=== PATIENT | male | born 1935 | race Caucasian/White ===

== ENCOUNTER 2016-06-22 11:27 | Inpatient (IN) | payer OTHER ==
[~2016-06-22] VITALS: Ht 182.9 cm; Wt 124.0 kg
[2016-06-22] VITALS (10 sets, daily range): BP systolic 112–171; BP diastolic 67–105
[~2016-06-22 11:27] MED LIST: ADVAIR 100-501 EACH IH; ADVAIR 250/501 DISK IH; ADVAIR 500/501 DISK IH; ALBUTEROL17 GM IH; AMLODIPINE BESYL5 MG PO; ASPIR 8181 M1 PO; ASPIR 8181 MG PO; ASPIRIN81 M1 PO; ATROVENT 0.03%30 ML BOTH NARES; ATROVENT 00.5 MG/2.5 IH; CALCIUM + D 601 EACH PO; CALCIUM 600 +1 EAC2 PO; CALCIUM 600 +1 EAC9 PO; CALCIUM 600 MG1 EACH PO; CALCIUM600 MG PO; CATAPRES0.1 MG PO; CELEBREX200 MG PO; CELEBREX400 MG PO; CELECOXIB200 MG PO; CIPRO500 MG PO; CLONIDINE HCL0.1 MG PO; COUMADIN1 MG PO; COUMADIN3 MG PO; CYANOCOBAL1000 MCG/2 IM; CYANOCOBALAM1000 MCG PO; DAILY VITE1 EAC1 PO; DIOVAN HCT 81 TABLET PO; DIOVAN80 MG PO; DUONEB 2.5-0.5 M3 ML AEROSOL; DUONEB3 ML IH; DURAGESIC25 MCG TD; DURAGESIC50 MCG PO; DURAGESIC75 MCG TD; Duragesic TD; EFFEXOR XR150 MG PO; ENDOCET 5-3251 EACH PO; Ecotrin PO; FERROUS SULFAT325 MG PO; FLONASE16 G1 BOTH NARES; FLOVENT 11120 INHALA IH; FLOVENT DISKUS1 DISK IH; FLUOXETINE HCL40 MG PO; GABAPENTIN600 MG PO; GLUCOSAMINE &1 EACH PO; GLUCOSAMINE CH1 EAC1 PO; HYZAAR 100-21 TABLET PO; IPRATROPIUM BRO30 ML BOTH NARES; IRON PO; IRON325 M1 PO; LIDOCAINE700 MG TD; LISINOPRIL5 MG PO; LOPRESSOR50 MG PO; LOSARTAN-HCTZ1 EAC1 PO; LOVENOX40 MG/0.4 SC; Lopressor PO; METOPROLOL TART50 MG PO; MONTELUKAST SOD10 MG PO; MOTRIN400 MG PO; MULTIPLE VITAM1 EAC1 PO; NASONEX17 GM NS; NEURONTIN300 MG PO; NEURONTIN600 MG PO; NIACIN1000 MG PO; NIACIN750 MG PO; NIASPAN,SLO-N1000 MG PO; NIASPAN750 MG PO; NORVASC5 MG PO; ONE DAILY1 EAC3 PO; PERCOCET 5/31 TABLET PO; PRINIVIL5 MG PO; PROTONIX40 MG PO; PROZAC40 MG PO; SENNA PLUS TAB1 EACH PO; SENOKOT S,PE1 TABLET PO; SIMVASTATIN40 MG PO; SINGULAIR10 MG PO; SPECTRAVITE1 EAC1 PO; Singulair PO; VENTOLIN HFA18 GM IH; VITAMIN D-32000 UNI2 PO; VITAMIN D1000 INTUN PO; VITAMIN D1000 UNIT PO; VITAMIN D2000 UNIT PO; VITAMIN D31000 UNI1 PO; VITAMIN D31000 UNI2 PO; VITAMIN D400 UNI1 PO; VYTORIN 10-401 EACH PO; VYTORIN 10/41 TABLET PO; WARFARIN SODIU7.5 MG PO; ZADITOR 0.100 DROP/5 BOTH EYES; ZOCOR40 MG PO
[2016-06-22 12:04] LABS: HEMATOCRIT 44.7 % (38.0-50.0); MCH 32.6 PG (29.0-34.0); MCHC 34.9 G/DL (30.0-36.0); MCV 93.3 FL (86-99); MEAN PLAT.VOLUME 9.8 uM^3 (9.0-12.4); PLATELET COUNT 242 K/uL (156-360); RBC DIS.WIDTH-SD 42.9 % (39-53); RED BLOOD COUNT 4.79 M/uL (4.00-5.50); WHITE BLOOD COUNT 9.6 K/uL (4.1-10.2)
[2016-06-22 12:15] LABS: CHLORIDE 103 mEq/L (99-109); POTASSIUM 4.6 mEq/L (3.7-5.4); SODIUM 138 mEq/L (136-147)
[2016-06-22 12:16] LABS: GLUCOSE 119 mg/dL (70-99)
[2016-06-22 12:18] LABS: ANION GAP 11 MEQ/L (2-14)
[2016-06-22 12:20] LABS: GFR ESTIMATE (CALCULATED) 44 mL/min/
[2016-06-22 12:21] LABS: UREA NITROGEN (BUN) 19 mg/dL (9-23)
[2016-06-22 12:24] LABS: TROP-I INTERPRETATION INDETERMINATE; TROPONIN-I 0.42 ng/mL (0.0-0.30)
[2016-06-22 17:29] LABS: POINT-OF-CARE METER ID UU13113698
[2016-06-22 18:20] LABS: TROP-I INTERPRETATION INDETERMINATE; TROPONIN-I 0.42 ng/mL (0.0-0.30)
[2016-06-22] MEDS ORDERED: IMODIUM A-D2 M2 PO (18:26)
[2016-06-22 20:35] LABS: INFLUENZA A VIRAL ANTIGEN NEGATIVE; INFLUENZA B VIRAL ANTIGEN NEGATIVE
[2016-06-23 01:14] LABS: TROP-I INTERPRETATION INDETERMINATE; TROPONIN-I 0.31 ng/mL (0.0-0.30)
[2016-06-23 03:42] VITALS: BP 154/92
[2016-06-23 05:57] LABS: ANION GAP 11 MEQ/L (2-14); CHLORIDE 101 MEQ/L (99-109); GFR ESTIMATE (CALCULATED) 39 mL/min/; GLUCOSE 131 mg/dL (70-99); SAMPLE HEMOLYSIS CHECK 0; SAMPLE ICTERIC CHECK 0; SAMPLE LIPEMIA CHECK 0; SODIUM 135 MEQ/L (136-147)
[2016-06-23 06:39] LABS: UREA NITROGEN (BUN) 33 mg/dL (9-23)
[2016-06-23 06:45] LABS: HEMATOCRIT 40.7 % (38.0-50.0); MCH 32.6 PG (29.0-34.0); MCHC 34.2 G/DL (30.0-36.0); MCV 95.3 FL (86-99); MEAN PLAT.VOLUME 10.9 uM^3 (9.0-12.4); PLATELET COUNT 225 K/uL (156-360); RBC DIS.WIDTH-SD 44.6 % (39-53); RED BLOOD COUNT 4.27 M/uL (4.00-5.50)
[2016-06-23 06:47] LABS: WHITE BLOOD COUNT 12.7 K/uL (4.1-10.2)
[2016-06-23 08:10] VITALS: BP 160/95
[2016-06-23 11:20] VITALS: BP 141/77
[2016-06-23 12:01] LABS: POINT-OF-CARE METER ID UU14174216
[2016-06-23 16:55] VITALS: BP 141/85
[2016-06-23 17:36] LABS: POINT-OF-CARE METER ID UU14174216
[2016-06-23 19:37] VITALS: BP 144/94
[2016-06-24 00:45] VITALS: BP 146/71
[2016-06-24 07:11] LABS: ANION GAP 10 MEQ/L (2-14); CHLORIDE 101 MEQ/L (99-109); GFR ESTIMATE (CALCULATED) 31 mL/min/; GLUCOSE 122 mg/dL (70-99); POTASSIUM 4.6 MEQ/L (3.7-5.4); SAMPLE HEMOLYSIS CHECK 0; SAMPLE ICTERIC CHECK 0; SAMPLE LIPEMIA CHECK 0; SODIUM 133 MEQ/L (136-147)
[2016-06-24 07:12] LABS: HEMATOCRIT 39.1 % (38.0-50.0); MCH 33.1 PG (29.0-34.0); MCV 94.4 FL (86-99); MEAN PLAT.VOLUME 10.9 uM^3 (9.0-12.4); PLATELET COUNT 217 K/uL (156-360); RBC DIS.WIDTH-CV 12.8 % (11.8-14.6); RBC DIS.WIDTH-SD 44.2 % (39-53); RED BLOOD COUNT 4.14 M/uL (4.00-5.50); UREA NITROGEN (BUN) 54 mg/dL (9-23)
[2016-06-24 07:56] LABS: POINT-OF-CARE METER ID UU13113781
[2016-06-24 08:03] VITALS: BP 140/74
[2016-06-24 15:20] VITALS: BP 143/82
[2016-06-24 19:18] VITALS: BP 137/77
[2016-06-24 23:20] LABS: ADD MIUA? NO; BILIRUBIN NEGATIVE; BLOOD NEGATIVE; COLOR YELLOW ((YELLOW)); GLUCOSE (STRIP) NEGATIVE; KETONES NEGATIVE; LEUKOCYTES NEGATIVE; NITRITE NEGATIVE; PROTEIN (STRIP) NEGATIVE; SPECIFIC GRAVITY 1.021 (1.000-1.030); UROBILINOGEN 0.2 MG/DL (0.2-1.0)
[2016-06-25 00:22] VITALS: BP 138/85
[2016-06-25 05:27] VITALS: BP 146/91
[2016-06-25 07:01] LABS: HEMATOCRIT 36.3 % (38.0-50.0); MCH 32.4 PG (29.0-34.0); MCHC 34.4 G/DL (30.0-36.0); PLATELET COUNT 166 K/uL (156-360); RBC DIS.WIDTH-CV 12.8 % (11.8-14.6); RBC DIS.WIDTH-SD 43.5 % (39-53); RED BLOOD COUNT 3.86 M/uL (4.00-5.50)
[2016-06-25 07:02] LABS: WHITE BLOOD COUNT 11.6 K/uL (4.1-10.2)
[2016-06-25 07:12] LABS: ANION GAP 8 MEQ/L (2-14); CHLORIDE 102 MEQ/L (99-109); GFR ESTIMATE (CALCULATED) 34 mL/min/; GLUCOSE 120 mg/dL (70-99); POTASSIUM 4.5 MEQ/L (3.7-5.4); SAMPLE HEMOLYSIS CHECK 0; SAMPLE ICTERIC CHECK 0; SAMPLE LIPEMIA CHECK 0; SODIUM 132 MEQ/L (136-147); UREA NITROGEN (BUN) 52 mg/dL (9-23)
[2016-06-25 08:15] VITALS: BP 160/93
[2016-06-25 11:30] VITALS: BP 140/86
[2016-06-25 13:24] LABS: ANION GAP 5 MEQ/L (2-14); CHLORIDE 101 MEQ/L (99-109); GFR ESTIMATE (CALCULATED) 39 mL/min/; GLUCOSE 93 mg/dL (70-99); SAMPLE HEMOLYSIS CHECK 1; SAMPLE ICTERIC CHECK 0; SAMPLE LIPEMIA CHECK 0; SODIUM 133 MEQ/L (136-147); UREA NITROGEN (BUN) 50 mg/dL (9-23)
[2016-06-25 13:27] LABS: POTASSIUM 4.2 MEQ/L (3.7-5.4)
[2016-06-25] MEDS ORDERED: ASPIR-LOW81 MG PO (13:46)
[2016-06-25] MEDS ORDERED: LEVOFLOXACIN750 MG PO (13:50)
[2016-06-25] MEDS ORDERED: AMLODIPINE BES2.5 MG PO (13:50)
[2016-06-25] MEDS ORDERED: LOPRESSOR25 MG PO (13:50)
[2016-06-25] MEDS ORDERED: PREDNISONE20 MG PO (13:50)
[2016-06-25] MEDS ORDERED: ATORVASTATIN CA40 MG PO (13:50)
[2016-06-25] MEDS ORDERED: VENTOLIN HFA18 GM IH (14:44)
== END 2016-06-25 15:15 | disposition home health service (06) | DRG 281 ==
LOC: EME → EDBD 11:27 → 4EAST 14:04 → EDOF 14:04 → 4EAST 15:05
PROVIDERS: Emergency Medicine; Hospitalist; Internal Medicine; Physician Assistant
PROC: 5A1935Z Respiratory Ventilation, Less than 24 Consecutive Hours (ICD-10-PCS; principal; 2016-06-22)
DX: I21.4 Non-ST elevation (NSTEMI) myocardial infarction (principal); J44.1 Chronic obstructive pulmonary disease with (acute) exacerbation; F33.9 Major depressive disorder, recurrent, unspecified; I48.2 Chronic atrial fibrillation; N18.3 Chronic kidney disease, stage 3 (moderate); G47.33 Obstructive sleep apnea (adult) (pediatric); I50.9 Heart failure, unspecified; J20.9 Acute bronchitis, unspecified; I25.10 Atherosclerotic heart disease of native coronary artery without angina pectoris; I45.10 Unspecified right bundle-branch block; I12.9 Hypertensive chronic kidney disease with stage 1 through stage 4 chronic kidney disease, or unspecified chronic kidney disease; E78.5 Hyperlipidemia, unspecified; F41.9 Anxiety disorder, unspecified; F03.90 Unspecified dementia, unspecified severity, without behavioral disturbance, psychotic disturbance, mood disturbance, and anxiety; K21.9 Gastro-esophageal reflux disease without esophagitis; J45.909 Unspecified asthma, uncomplicated; E66.9 Obesity, unspecified; Z68.37 Body mass index [BMI] 37.0-37.9, adult; Z87.891 Personal history of nicotine dependence; Z88.0 Allergy status to penicillin; Z99.89 Dependence on other enabling machines and devices
CPT/HCPCS: 71010; 80048; 80048 91; 81003; 82948; 84484; 85027; 85730; 87502; 93005; 93306; 94002; 94640; 94640 76; 94760; 94799; 99202; 99281; 99285; J1100; J1815; J2920; J7120; J7512; J7644

== ENCOUNTER 2016-10-14 14:54 | Emergency (ER) | payer OTHER ==
[~2016-10-14] VITALS: Ht 182.9 cm; Wt 122.1 kg
[~2016-10-14 14:54] MED LIST changes: +AMLODIPINE BES2.5 MG PO; +ASPIR-LOW81 MG PO; +ATORVASTATIN CA40 MG PO; +IMODIUM A-D2 M2 PO; +LEVOFLOXACIN750 MG PO; +LOPRESSOR25 MG PO; +PREDNISONE20 MG PO
[2016-10-14 16:45] LABS: BASOPHIL COUNT 0.1 K/uL (0-0.1); EOSINOPHIL (%) 12.5 % (0-5); EOSINOPHIL COUNT 1.1 K/uL (0-0.3); HEMATOCRIT 37.8 % (38.0-50.0); IMMATURE GRANULOCYTE (%) 1.7 % (0.0-0.7); IMMATURE GRANULOCYTE COUNT 0.2 K/uL; INSTRUMENT ABS NEUTROPHIL CT 5.8 K/uL; LYMPHOCYTE COUNT 1.2 K/uL (1.0-2.8); MCH 32.7 PG (29.0-34.0); MCHC 32.5 G/DL (30.0-36.0); MCV 100.5 FL (86-99); MEAN PLAT.VOLUME 10.5 uM^3 (9.0-12.4); MONOCYTE (%) 8.1 % (3-12); MONOCYTE COUNT 0.7 K/uL (0-0.8); NEUTROPHIL (%) 64.1 % (45-76); NEUTROPHIL COUNT 5.8 K/uL (1.8-6.4); PLATELET COUNT 195 K/uL (156-360); RBC DIS.WIDTH-CV 13.2 % (11.8-14.6); RBC DIS.WIDTH-SD 48.4 % (39-53); RED BLOOD COUNT 3.76 M/uL (4.00-5.50); WHITE BLOOD COUNT 9.1 K/uL (4.1-10.2)
[2016-10-14 16:54] LABS: CHLORIDE 111 mEq/L (99-109); POTASSIUM 4.6 mEq/L (3.7-5.4); SODIUM 142 mEq/L (136-147)
[2016-10-14 16:55] LABS: GLUCOSE 119 mg/dL (70-99)
[2016-10-14 16:57] LABS: ANION GAP 9 MEQ/L (2-14)
[2016-10-14 16:59] LABS: GFR ESTIMATE (CALCULATED) 44 mL/min/
[2016-10-14 17:00] LABS: UREA NITROGEN (BUN) 23 mg/dL (9-23)
[2016-10-14 18:04] LABS: TROP-I INTERPRETATION NEGATIVE; TROPONIN-I < 0.01 ng/mL (0.0-0.30)
[2016-10-14] MEDS ORDERED: PREDNISONE10 MG PO (19:24)
[2016-10-14] MEDS ORDERED: PREDNISONE50 MG PO (19:29)
[2016-10-14 19:58] VITALS: BP 162/93
== END 2016-10-14 20:30 | disposition home or self-care (01) ==
LOC: EME 14:54
PROVIDERS: Emergency Medicine; Physician Assistant
DX: J44.1 Chronic obstructive pulmonary disease with (acute) exacerbation (principal); I10 Essential (primary) hypertension; E78.5 Hyperlipidemia, unspecified; I25.2 Old myocardial infarction; Z87.891 Personal history of nicotine dependence
CPT/HCPCS: 71020; 80048; 84484; 85025; 93005; 94640; 94640 76; 99281; 99284; J1100

== ENCOUNTER 2017-05-01 10:08 | Inpatient (IN) | payer OTHER ==
[~2017-05-01] VITALS: Ht 182.9 cm; Wt 118.2 kg
[~2017-05-01 10:08] MED LIST changes: +DELTASONE20 M1 PO; +LEVAQUIN500 MG PO; +PREDNISONE10 MG PO; +PREDNISONE50 MG PO
[2017-05-01 11:20] LABS: HEMATOCRIT 42.4 % (38.0-50.0); HEMOGLOBIN 14.1 G/DL (12.5-16.6); MCH 32.6 PG (29.0-34.0); MCHC 33.3 G/DL (30.0-36.0); MCV 98.1 FL (86-99); PLATELET COUNT 170 K/uL (156-360); RBC DIS.WIDTH-CV 13.3 % (11.8-14.6); RBC DIS.WIDTH-SD 48.6 % (39-53); RED BLOOD COUNT 4.32 M/uL (4.00-5.50); WHITE BLOOD COUNT 7.8 K/uL (4.1-10.2)
[2017-05-01 11:30] LABS: ALBUMIN 3.6 g/dL (3.2-4.8); CHLORIDE 108 mEq/L (99-109); POTASSIUM 4.6 mEq/L (3.7-5.4); SODIUM 142 mEq/L (136-147)
[2017-05-01 11:32] LABS: GLUCOSE 110 mg/dL (70-99); TOTAL PROTEIN 6.4 g/dL (6.4-8.3)
[2017-05-01 11:34] LABS: TOTAL BILIRUBIN 1.3 mg/dL (0.0-1.0)
[2017-05-01 11:36] LABS: ALKALINE PHOSPHATASE 60 IU/L (3-129); CREATININE 1.6 mg/dL (0.6-1.3); GFR ESTIMATE (CALCULATED) 44 mL/min/ (58.99-99999)
[2017-05-01 11:37] LABS: UREA NITROGEN (BUN) 16 mg/dL (9-23)
[2017-05-01 11:38] LABS: AST (GOT) 19 IU/L (2-34)
[2017-05-01 11:39] LABS: ALT (GPT) 13 IU/L (3-49)
[2017-05-01 11:44] LABS: TROP-I INTERPRETATION NEGATIVE; TROPONIN-I 0.01 ng/mL (0.0-0.30)
[2017-05-01] MEDS ORDERED: LOPRESSOR50 MG PO (14:56)
[2017-05-01] MEDS ORDERED: LIPITOR40 MG PO (14:56)
[2017-05-01] MEDS ORDERED: ADULT ASPIRIN R81 MG PO (14:57)
[2017-05-01] MEDS ORDERED: ALBUTEROL1.25 MG/3 IH (14:59)
[2017-05-01 19:10] LABS: TROP-I INTERPRETATION NEGATIVE; TROPONIN-I < 0.01 ng/mL (0.0-0.30)
[2017-05-01 20:48] VITALS: BP 197/103
[2017-05-01 22:29] VITALS: BP 180/100
[2017-05-02] VITALS (7 sets, daily range): BP systolic 129–190; BP diastolic 74–95
[2017-05-02 02:49] LABS: TROP-I INTERPRETATION NEGATIVE; TROPONIN-I < 0.01 ng/mL (0.0-0.30)
[2017-05-02 06:05] LABS: CHLORIDE 106 MEQ/L (99-109); CREATININE 1.5 MG/DL (0.6-1.3); GFR ESTIMATE (CALCULATED) 48 mL/min/ (58.99-99999); GLUCOSE 118 mg/dL (70-99); POTASSIUM 4.4 MEQ/L (3.7-5.4); SODIUM 138 MEQ/L (136-147); UREA NITROGEN (BUN) 18 mg/dL (9-23)
[2017-05-03 03:56] VITALS: BP 136/79
[2017-05-03 08:51] VITALS: BP 168/95
[2017-05-03 12:54] VITALS: BP 162/88
[2017-05-03 17:27] VITALS: BP 155/80
[2017-05-03 20:00] VITALS: BP 154/77
[2017-05-04 00:26] VITALS: BP 148/69
[2017-05-04 07:43] VITALS: BP 186/88
[2017-05-04] MEDS ORDERED: LEVOFLOXACIN500 MG PO (10:50)
[2017-05-04] MEDS ORDERED: PREDNISONE10 MG PO (10:54)
[2017-05-04 11:09] VITALS: BP 124/66
== END 2017-05-04 13:37 | disposition home health service (06) | DRG 191 ==
LOC: EME 10:08 → EDOF 14:34 → 5WEST 14:34 → EDOF 14:34 → ENRESERV 14:38 → 5WEST 20:12 → ENPENDDIS 05-04 11:07 → 5WEST 05-04 13:37
PROVIDERS: Emergency Medicine; Internal Medicine
DX: J44.1 Chronic obstructive pulmonary disease with (acute) exacerbation (principal); N17.9 Acute kidney failure, unspecified; I13.0 Hypertensive heart and chronic kidney disease with heart failure and stage 1 through stage 4 chronic kidney disease, or unspecified chronic kidney disease; N18.3 Chronic kidney disease, stage 3 (moderate); R09.02 Hypoxemia; I50.9 Heart failure, unspecified; E78.5 Hyperlipidemia, unspecified; I48.91 Unspecified atrial fibrillation; F03.90 Unspecified dementia, unspecified severity, without behavioral disturbance, psychotic disturbance, mood disturbance, and anxiety; Z79.82 Long term (current) use of aspirin; Z68.35 Body mass index [BMI] 35.0-35.9, adult; Z72.0 Tobacco use; Z79.899 Other long term (current) drug therapy; Z96.611 Presence of right artificial shoulder joint; Z96.649 Presence of unspecified artificial hip joint; Z96.653 Presence of artificial knee joint, bilateral; Z98.1 Arthrodesis status; I25.2 Old myocardial infarction
CPT/HCPCS: 71045; 80048; 80053; 83605; 83880; 84484; 85027; 87040; 87070; 87205; 93005; 94640 76; 99202; 99281; 99284; G0378; G8987 GO CJ; G8989 GO CI; J0360; J1644; J1956; J2930; J3475; J7030; J7644

== ENCOUNTER 2017-06-27 13:15 | Inpatient (IN) | payer OTHER ==
[~2017-06-27] VITALS: Ht 182.9 cm; Wt 128.7 kg
[~2017-06-27 13:15] MED LIST changes: +ADULT ASPIRIN R81 MG PO; +ALBUTEROL1.25 MG/3 IH; +LEVOFLOXACIN500 MG PO; +LIPITOR40 MG PO
[2017-06-27] MEDS ORDERED: PERCOCET 5/31 TABLET PO (14:16)
[2017-06-27 14:17] LABS: BASOPHIL (%) 0.2 % (0-1); EOSINOPHIL (%) 0.1 % (0-5); HEMATOCRIT 43.4 % (38.0-50.0); HEMOGLOBIN 14.6 G/DL (12.5-16.6); IMMATURE GRANULOCYTE (%) 0.9 % (0.0-0.7); LYMPHOCYTE (%) 7.1 % (15-42); LYMPHOCYTE COUNT 1.2 K/uL (1.0-2.8); MCH 33.2 PG (29.0-34.0); MCHC 33.6 G/DL (30.0-36.0); MCV 98.6 FL (86-99); MONOCYTE (%) 6.1 % (3-12); NEUTROPHIL (%) 85.6 % (45-76); NRBC (%) 0.1 /100 WBC (0-0); PLATELET COUNT 187 K/uL (156-360); RBC DIS.WIDTH-CV 13.2 % (11.8-14.6); RBC DIS.WIDTH-SD 48.2 % (39-53); WHITE BLOOD COUNT 16.3 K/uL (4.1-10.2)
[2017-06-27 14:26] LABS: ALBUMIN 3.5 g/dL (3.2-4.8)
[2017-06-27 14:27] LABS: CARBON DIOXIDE (BICARBONATE) 22.7 MEQ/L (20-31); CHLORIDE 106 mEq/L (99-109); POTASSIUM 3.9 mEq/L (3.7-5.4); SODIUM 139 mEq/L (136-147)
[2017-06-27 14:28] LABS: INTER. NORMALIZED RATIO 1.1
[2017-06-27 14:29] LABS: GLUCOSE 120 mg/dL (70-99); TOTAL PROTEIN 6.2 g/dL (6.4-8.3)
[2017-06-27 14:32] LABS: ALKALINE PHOSPHATASE 56 IU/L (3-129)
[2017-06-27 14:33] LABS: CREATININE 3.7 mg/dL (0.6-1.3); GFR ESTIMATE (CALCULATED) 17 mL/min/ (58.99-99999)
[2017-06-27 14:34] LABS: AST (GOT) 29 IU/L (2-34); UREA NITROGEN (BUN) 52 mg/dL (9-23)
[2017-06-27 14:36] LABS: ALT (GPT) 27 IU/L (3-49); LIPASE 30 U/L (1.0-51.0)
[2017-06-27 14:39] LABS: TROP-I INTERPRETATION NEGATIVE; TROPONIN-I 0.03 ng/mL (0.0-0.30)
[2017-06-27 16:13] LABS: APPEARANCE CLOUDY ((CLEAR)); BILIRUBIN NEGATIVE; BLOOD SMALL; COLOR AMBER ((YELLOW)); GLUCOSE (STRIP) NEGATIVE; KETONES NEGATIVE; LEUKOCYTES NEGATIVE; NITRITE NEGATIVE; PROTEIN (STRIP) 30; SPECIFIC GRAVITY 1.024 (1.000-1.030); UROBILINOGEN 0.2 MG/DL (0.2-1.0)
[2017-06-27 16:22] LABS: BACTERIA NONE SEEN /HPF; EPITHELIAL CELLS RARE /HPF; HYALINE CASTS 0-5 /LPF; MUCUS TRACE /LPF; RED BLOOD CELLS 0-5 /HPF (0-5); UCUL ADDED? YES; WHITE BLOOD CELLS 20-30 /HPF (0-5)
[2017-06-27 19:29] VITALS: BP 126/75
[2017-06-27 19:48] LABS: TROP-I INTERPRETATION NEGATIVE; TROPONIN-I 0.02 ng/mL (0.0-0.30)
[2017-06-27 19:50] LABS: CREATININE 3.2 mg/dL (0.6-1.3)
[2017-06-27 20:12] VITALS: BP 126/75
[2017-06-27 23:34] VITALS: BP 126/71
[2017-06-28 04:15] VITALS: BP 135/74
[2017-06-28 06:50] VITALS: BP 173/85
[2017-06-28 07:01] LABS: CHLORIDE 111 MEQ/L (99-109); GLUCOSE 92 mg/dL (70-99); POTASSIUM 3.8 MEQ/L (3.7-5.4); SODIUM 138 MEQ/L (136-147); UREA NITROGEN (BUN) 47 mg/dL (9-23)
[2017-06-28 07:03] LABS: CREATININE 2.6 MG/DL (0.6-1.3); GFR ESTIMATE (CALCULATED) 25 mL/min/ (58.99-99999)
[2017-06-28 07:15] LABS: HEMATOCRIT 32.6 % (38.0-50.0); MCH 32.8 PG (29.0-34.0); MCHC 33.1 G/DL (30.0-36.0); MCV 99.1 FL (86-99); PLAT.SUFFICIENCY DECREASED; RBC DIS.WIDTH-CV 13.4 % (11.8-14.6); WHITE BLOOD COUNT 10.9 K/uL (4.1-10.2)
[2017-06-28 07:16] LABS: HEMOGLOBIN 10.8 G/DL (12.5-16.6); PLATELET COUNT 117 K/uL (156-360); RED BLOOD COUNT 3.29 M/uL (4.00-5.50)
[2017-06-28 11:00] VITALS: BP 160/79
[2017-06-28 15:00] VITALS: BP 152/80
[2017-06-28 19:23] VITALS: BP 164/89
[2017-06-28 23:55] VITALS: BP 126/87
[2017-06-29 06:44] LABS: HEMATOCRIT 36.4 % (38.0-50.0); HEMOGLOBIN 12.1 G/DL (12.5-16.6); MCH 33.2 PG (29.0-34.0); MCHC 33.2 G/DL (30.0-36.0); MCV 99.7 FL (86-99); RBC DIS.WIDTH-CV 13.3 % (11.8-14.6); RBC DIS.WIDTH-SD 49.5 % (39-53); RED BLOOD COUNT 3.65 M/uL (4.00-5.50); WHITE BLOOD COUNT 9.8 K/uL (4.1-10.2)
[2017-06-29 06:45] LABS: PLATELET COUNT 159 K/uL (156-360)
[2017-06-29 07:17] LABS: CHLORIDE 104 MEQ/L (99-109); GLUCOSE 77 mg/dL (70-99); POTASSIUM 3.7 MEQ/L (3.7-5.4); SODIUM 139 MEQ/L (136-147); UREA NITROGEN (BUN) 36 mg/dL (9-23)
[2017-06-29 07:20] LABS: CREATININE 2.1 MG/DL (0.6-1.3); GFR ESTIMATE (CALCULATED) 32 mL/min/ (58.99-99999)
[2017-06-29 07:43] VITALS: BP 179/81
[2017-06-29 15:16] VITALS: BP 127/71
[2017-06-29 23:35] VITALS: BP 144/82
[2017-06-30 06:42] LABS: CHLORIDE 106 MEQ/L (99-109); CREATININE 1.8 MG/DL (0.6-1.3); GFR ESTIMATE (CALCULATED) 38 mL/min/ (58.99-99999); GLUCOSE 101 mg/dL (70-99); POTASSIUM 3.8 MEQ/L (3.7-5.4); SODIUM 137 MEQ/L (136-147); UREA NITROGEN (BUN) 31 mg/dL (9-23)
[2017-06-30 08:08] VITALS: BP 158/93
[2017-06-30 16:15] VITALS: BP 141/72
[2017-06-30 23:36] VITALS: BP 154/85
[2017-07-01 05:53] LABS: HEMATOCRIT 32.1 % (38.0-50.0); HEMOGLOBIN 10.7 G/DL (12.5-16.6); MCH 32.6 PG (29.0-34.0); MCHC 33.3 G/DL (30.0-36.0); MCV 97.9 FL (86-99); PLATELET COUNT 153 K/uL (156-360); RBC DIS.WIDTH-CV 13.3 % (11.8-14.6); RBC DIS.WIDTH-SD 47.8 % (39-53); RED BLOOD COUNT 3.28 M/uL (4.00-5.50); WHITE BLOOD COUNT 8.7 K/uL (4.1-10.2)
[2017-07-01 06:31] LABS: CHLORIDE 110 MEQ/L (99-109); POTASSIUM 4.1 MEQ/L (3.7-5.4); SODIUM 139 MEQ/L (136-147)
[2017-07-01 06:36] LABS: CREATININE 1.4 MG/DL (0.6-1.3); GFR ESTIMATE (CALCULATED) 51 mL/min/ (58.99-99999); GLUCOSE 121 mg/dL (70-99); UREA NITROGEN (BUN) 26 mg/dL (9-23)
[2017-07-01 07:03] VITALS: BP 167/90
[2017-07-01] MEDS ORDERED: LEVOFLOXACIN750 MG PO (12:00)
== END 2017-07-01 16:30 | DRG 871 ==
LOC: EME 13:15 → 5EAST 16:30 → EDOF 16:30 → ENRESERV 16:35 → 5EAST 19:13 → ENPENDDIS 07-01 16:00 → 5EAST 07-01 16:30
PROVIDERS: Emergency Medicine; Internal Medicine
DX: A41.9 Sepsis, unspecified organism (principal); R65.20 Severe sepsis without septic shock; N17.9 Acute kidney failure, unspecified; J44.0 Chronic obstructive pulmonary disease with (acute) lower respiratory infection; J18.9 Pneumonia, unspecified organism; Y95 Nosocomial condition; J44.1 Chronic obstructive pulmonary disease with (acute) exacerbation; I95.9 Hypotension, unspecified; R19.7 Diarrhea, unspecified; I13.0 Hypertensive heart and chronic kidney disease with heart failure and stage 1 through stage 4 chronic kidney disease, or unspecified chronic kidney disease; I50.9 Heart failure, unspecified; N18.3 Chronic kidney disease, stage 3 (moderate); E78.5 Hyperlipidemia, unspecified; F03.90 Unspecified dementia, unspecified severity, without behavioral disturbance, psychotic disturbance, mood disturbance, and anxiety; G47.30 Sleep apnea, unspecified; I25.10 Atherosclerotic heart disease of native coronary artery without angina pectoris; K21.9 Gastro-esophageal reflux disease without esophagitis; N39.498 Other specified urinary incontinence; F32.9 Major depressive disorder, single episode, unspecified; F41.9 Anxiety disorder, unspecified; G43.909 Migraine, unspecified, not intractable, without status migrainosus; G89.29 Other chronic pain; M54.9 Dorsalgia, unspecified; Z96.611 Presence of right artificial shoulder joint; Z96.649 Presence of unspecified artificial hip joint; Z96.653 Presence of artificial knee joint, bilateral; Z98.1 Arthrodesis status; I25.2 Old myocardial infarction; Z79.82 Long term (current) use of aspirin; Z88.1 Allergy status to other antibiotic agents; Z87.891 Personal history of nicotine dependence
CPT/HCPCS: 70450; 71045; 71250; 74176; 80048; 80053; 81003; 82565; 82803; 83605; 83690; 83880; 84484; 85025; 85027; 85610; 85730; 87040; 87086 GA; 87449; 87493; 87502; 87641; 92523 GN; 92610 GN; 94640; 94640 76; 94799; 99202; 99281; 99285; J0456; J0692; J1644; J1956; J3370; J7030; J7120; J7512

== ENCOUNTER 2017-07-29 13:35 | Emergency (ER) | payer OTHER ==
[~2017-07-29] VITALS: Ht 182.9 cm; Wt 130.6 kg
[2017-07-29 15:23] LABS: BASE EXCESS -0.3 mEq/L (-3 to +3); CARBOXY HGB 1.3 % (0-5); METHEMOGLOBIN 1.1 % (0-1.5); PCO2 37 mm Hg (35-45); PO2 78 mm Hg (80-100); SITE RR; pH 7.42 (7.35-7.45)
[2017-07-29 15:24] LABS: COMMENTS - BLOOD GASES A+C+; FI02 21 %; TOTAL RESP RATE 20 resp/min
[2017-07-29 15:52] LABS: BASOPHIL (%) 0.1 % (0-1); EOSINOPHIL (%) 3.2 % (0-5); EOSINOPHIL COUNT 0.2 K/uL (0-0.3); HEMATOCRIT 33.3 % (38.0-50.0); HEMOGLOBIN 10.9 G/DL (12.5-16.6); IMMATURE GRANULOCYTE (%) 2.9 % (0.0-0.7); LYMPHOCYTE (%) 22.1 % (15-42); LYMPHOCYTE COUNT 1.5 K/uL (1.0-2.8); MCH 32.3 PG (29.0-34.0); MCHC 32.7 G/DL (30.0-36.0); MCV 98.8 FL (86-99); MONOCYTE COUNT 0.8 K/uL (0-0.8); NEUTROPHIL (%) 59.7 % (45-76); NEUTROPHIL COUNT 4.1 K/uL (1.8-6.4); PLATELET COUNT 169 K/uL (156-360); RBC DIS.WIDTH-CV 13.2 % (11.8-14.6); RED BLOOD COUNT 3.37 M/uL (4.00-5.50); WHITE BLOOD COUNT 6.9 K/uL (4.1-10.2)
[2017-07-29 15:58] LABS: INTER. NORMALIZED RATIO 1.3
[2017-07-29 16:01] LABS: ALBUMIN 3.1 g/dL (3.2-4.8); CHLORIDE 108 mEq/L (99-109)
[2017-07-29 16:02] LABS: POTASSIUM 4.7 mEq/L (3.7-5.4); SODIUM 141 mEq/L (136-147)
[2017-07-29 16:04] LABS: GLUCOSE 105 mg/dL (70-99); TOTAL PROTEIN 5.9 g/dL (6.4-8.3)
[2017-07-29 16:06] LABS: TOTAL BILIRUBIN 0.7 mg/dL (0.0-1.0)
[2017-07-29 16:07] LABS: ALKALINE PHOSPHATASE 63 IU/L (3-129); CREATININE 1.7 mg/dL (0.6-1.3); GFR ESTIMATE (CALCULATED) 41 mL/min/ (58.99-99999)
[2017-07-29 16:09] LABS: AST (GOT) 21 IU/L (2-34); UREA NITROGEN (BUN) 24 mg/dL (9-23)
[2017-07-29 16:10] LABS: ALT (GPT) 13 IU/L (3-49); CREATINE KINASE 67 IU/L (1-294)
[2017-07-29 16:18] LABS: TROP-I INTERPRETATION NEGATIVE; TROPONIN-I < 0.01 ng/mL (0.0-0.30)
[2017-07-29 16:31] LABS: APPEARANCE SL.HAZY ((CLEAR)); BILIRUBIN NEGATIVE; BLOOD NEGATIVE; COLOR YELLOW ((YELLOW)); GLUCOSE (STRIP) NEGATIVE; KETONES NEGATIVE; LEUKOCYTES NEGATIVE; NITRITE NEGATIVE; PROTEIN (STRIP) NEGATIVE; SPECIFIC GRAVITY 1.019 (1.000-1.030); UROBILINOGEN 0.2 MG/DL (0.2-1.0)
[2017-07-29 16:51] LABS: BACTERIA RARE /HPF; EPITHELIAL CELLS RARE /HPF; MUCUS TRACE /LPF; RED BLOOD CELLS 0-5 /HPF (0-5); WHITE BLOOD CELLS 0-5 /HPF (0-5)
[2017-07-29 18:55] VITALS: BP 159/99
== END 2017-07-29 18:56 | disposition home or self-care (01) ==
LOC: EME 13:35
PROVIDERS: Emergency Medicine
DX: F03.90 Unspecified dementia, unspecified severity, without behavioral disturbance, psychotic disturbance, mood disturbance, and anxiety (principal); J18.9 Pneumonia, unspecified organism; J44.0 Chronic obstructive pulmonary disease with (acute) lower respiratory infection; S20.212A Contusion of left front wall of thorax, initial encounter; W18.30XA Fall on same level, unspecified, initial encounter; Y92.129 Unspecified place in nursing home as the place of occurrence of the external cause; I25.2 Old myocardial infarction; K21.9 Gastro-esophageal reflux disease without esophagitis; I10 Essential (primary) hypertension; F41.9 Anxiety disorder, unspecified; F32.9 Major depressive disorder, single episode, unspecified; E78.5 Hyperlipidemia, unspecified; Z96.653 Presence of artificial knee joint, bilateral; Z96.611 Presence of right artificial shoulder joint; Z96.641 Presence of right artificial hip joint; Z79.82 Long term (current) use of aspirin; Z88.0 Allergy status to penicillin; Z87.891 Personal history of nicotine dependence; K57.30 Diverticulosis of large intestine without perforation or abscess without bleeding; N28.1 Cyst of kidney, acquired
CPT/HCPCS: 36600; 70450; 71260; 72125; 74177; 80053; 81003; 82550; 82803; 84484; 85025; 85610; 87086; 93005; 94640; 99281; 99285; J7040

== ENCOUNTER 2017-09-13 13:21 | Emergency (ER) | payer OTHER ==
[~2017-09-13] VITALS: Ht 182.9 cm; Wt 123.4 kg
[2017-09-13 15:09] LABS: BASOPHIL (%) 0.3 % (0-1); EOSINOPHIL (%) 1.4 % (0-5); EOSINOPHIL COUNT 0.2 K/uL (0-0.3); HEMATOCRIT 38.9 % (38.0-50.0); LYMPHOCYTE COUNT 1.7 K/uL (1.0-2.8); MCH 32.1 PG (29.0-34.0); MCHC 33.4 G/DL (30.0-36.0); MONOCYTE (%) 8.3 % (3-12); MONOCYTE COUNT 1.1 K/uL (0-0.8); NEUTROPHIL COUNT 10.6 K/uL (1.8-6.4); PLATELET COUNT 193 K/uL (156-360); RBC DIS.WIDTH-CV 13.9 % (11.8-14.6); RED BLOOD COUNT 4.05 M/uL (4.00-5.50); WHITE BLOOD COUNT 13.8 K/uL (4.1-10.2)
[2017-09-13 15:17] LABS: PTT 27.2 SEC (25-37)
[2017-09-13 15:18] LABS: ALBUMIN 3.3 g/dL (3.2-4.8); CHLORIDE 106 mEq/L (99-109); POTASSIUM 4.2 mEq/L (3.7-5.4); SODIUM 138 mEq/L (136-147)
[2017-09-13 15:19] LABS: MAGNESIUM 2.4 mg/dL (1.3-2.7)
[2017-09-13 15:20] LABS: GLUCOSE 111 mg/dL (70-99); TOTAL PROTEIN 6.1 g/dL (6.4-8.3)
[2017-09-13 15:22] LABS: TOTAL BILIRUBIN 0.6 mg/dL (0.0-1.0)
[2017-09-13 15:24] LABS: ALKALINE PHOSPHATASE 69 IU/L (3-129); CREATININE 2.4 mg/dL (0.6-1.3); GFR ESTIMATE (CALCULATED) 28 mL/min/ (58.99-99999)
[2017-09-13 15:25] LABS: UREA NITROGEN (BUN) 39 mg/dL (9-23)
[2017-09-13 15:26] LABS: AST (GOT) 18 IU/L (2-34)
[2017-09-13 15:27] LABS: ALT (GPT) 11 IU/L (3-49); CREATINE KINASE 40 IU/L (1-294); TOTAL CK 40 IU/L (1-294)
[2017-09-13 15:30] LABS: TROP-I INTERPRETATION NEGATIVE; TROPONIN-I 0.03 ng/mL (0.0-0.30)
[2017-09-13 15:33] LABS: CK-MB 1.1 ng/mL (0.0-4.9); CKMB RELATIVE INDEX 2.8 (0.0-3.9)
[2017-09-13 17:56] LABS: APPEARANCE SL.HAZY ((CLEAR)); BILIRUBIN NEGATIVE; BLOOD NEGATIVE; COLOR AMBER ((YELLOW)); GLUCOSE (STRIP) NEGATIVE; KETONES NEGATIVE; LEUKOCYTES NEGATIVE; NITRITE NEGATIVE; PROTEIN (STRIP) 30; SPECIFIC GRAVITY 1.027 (1.000-1.030)
[2017-09-13 18:07] LABS: BACTERIA NONE SEEN /HPF; EPITHELIAL CELLS RARE /HPF; MUCUS TRACE /LPF; UCUL ADDED? YES
[2017-09-13 19:00] VITALS: BP 130/92
== END 2017-09-13 19:02 | disposition home or self-care (01) ==
LOC: EME 13:21
PROVIDERS: Emergency Medicine
DX: R41.0 Disorientation, unspecified (principal); I12.9 Hypertensive chronic kidney disease with stage 1 through stage 4 chronic kidney disease, or unspecified chronic kidney disease; N18.9 Chronic kidney disease, unspecified; I44.4 Left anterior fascicular block; I51.7 Cardiomegaly; J44.9 Chronic obstructive pulmonary disease, unspecified; Z79.51 Long term (current) use of inhaled steroids; E78.5 Hyperlipidemia, unspecified; K21.9 Gastro-esophageal reflux disease without esophagitis; G89.29 Other chronic pain; M54.9 Dorsalgia, unspecified; I25.2 Old myocardial infarction; Z79.82 Long term (current) use of aspirin; H26.9 Unspecified cataract; F41.9 Anxiety disorder, unspecified; F32.9 Major depressive disorder, single episode, unspecified; Z87.891 Personal history of nicotine dependence; Z87.440 Personal history of urinary (tract) infections; Z87.01 Personal history of pneumonia (recurrent); Z85.9 Personal history of malignant neoplasm, unspecified; Z96.653 Presence of artificial knee joint, bilateral; Z96.611 Presence of right artificial shoulder joint; Z96.641 Presence of right artificial hip joint; Z98.1 Arthrodesis status; Z90.49 Acquired absence of other specified parts of digestive tract; Z88.0 Allergy status to penicillin; Z91.09 Other allergy status, other than to drugs and biological substances
CPT/HCPCS: 70450; 71045; 80053; 81003; 82550; 82553; 83735; 84484; 85025; 85610; 85730; 87086; 93005; 99281; 99285

== ENCOUNTER 2017-10-15 18:03 | Emergency (ER) | payer OTHER ==
[~2017-10-15] VITALS: Ht 182.9 cm; Wt 122.6 kg
[2017-10-15 19:33] LABS: BASOPHIL (%) 0.4 % (0-1); EOSINOPHIL (%) 5.1 % (0-5); EOSINOPHIL COUNT 0.5 K/uL (0-0.3); HEMATOCRIT 37.1 % (38.0-50.0); HEMOGLOBIN 12.3 G/DL (12.5-16.6); IMMATURE GRANULOCYTE (%) 0.9 % (0.0-0.7); LYMPHOCYTE COUNT 1.8 K/uL (1.0-2.8); MCH 31.8 PG (29.0-34.0); MCHC 33.2 G/DL (30.0-36.0); MCV 95.9 FL (86-99); MONOCYTE (%) 12.2 % (3-12); MONOCYTE COUNT 1.2 K/uL (0-0.8); NEUTROPHIL (%) 63.4 % (45-76); NEUTROPHIL COUNT 6.3 K/uL (1.8-6.4); PLATELET COUNT 183 K/uL (156-360); RBC DIS.WIDTH-CV 13.7 % (11.8-14.6); RBC DIS.WIDTH-SD 48.2 % (39-53); RED BLOOD COUNT 3.87 M/uL (4.00-5.50)
[2017-10-15 19:42] LABS: ALBUMIN 3.2 g/dL (3.2-4.8); CHLORIDE 103 mEq/L (99-109); POTASSIUM 3.8 mEq/L (3.7-5.4); SODIUM 136 mEq/L (136-147)
[2017-10-15 19:44] LABS: GLUCOSE 121 mg/dL (70-99)
[2017-10-15 19:45] LABS: TOTAL PROTEIN 5.5 g/dL (6.4-8.3)
[2017-10-15 19:46] LABS: TOTAL BILIRUBIN 0.7 mg/dL (0.0-1.0)
[2017-10-15 19:48] LABS: ALKALINE PHOSPHATASE 62 IU/L (3-129); CREATININE 2.2 mg/dL (0.6-1.3); GFR ESTIMATE (CALCULATED) 31 mL/min/ (58.99-99999)
[2017-10-15 19:49] LABS: UREA NITROGEN (BUN) 30 mg/dL (9-23)
[2017-10-15 19:50] LABS: AST (GOT) 17 IU/L (2-34)
[2017-10-15 19:51] LABS: ALT (GPT) 10 IU/L (3-49)
[2017-10-15 19:54] LABS: TROP-I INTERPRETATION NEGATIVE; TROPONIN-I 0.03 ng/mL (0.0-0.30)
[2017-10-15 21:51] LABS: APPEARANCE CLEAR ((CLEAR)); BILIRUBIN NEGATIVE; BLOOD NEGATIVE; COLOR YELLOW ((YELLOW)); GLUCOSE (STRIP) NEGATIVE; KETONES NEGATIVE; LEUKOCYTES NEGATIVE; NITRITE NEGATIVE; PROTEIN (STRIP) 30; UCUL ADDED? NO
[2017-10-15 22:59] VITALS: BP 167/100
[2017-10-16] MEDS ORDERED: ZESTRIL10 MG PO (22:10)
[2017-10-16] MEDS ORDERED: TYLENOL REGULA325 MG PO (22:24)
== END 2017-10-15 23:09 | disposition home or self-care (01) ==
LOC: EME 18:03
PROVIDERS: Emergency Medicine
DX: R41.0 Disorientation, unspecified (principal); I12.9 Hypertensive chronic kidney disease with stage 1 through stage 4 chronic kidney disease, or unspecified chronic kidney disease; N18.9 Chronic kidney disease, unspecified; R44.1 Visual hallucinations; R44.0 Auditory hallucinations; I45.10 Unspecified right bundle-branch block; R00.1 Bradycardia, unspecified; J44.9 Chronic obstructive pulmonary disease, unspecified; I25.2 Old myocardial infarction; E78.5 Hyperlipidemia, unspecified; Z79.82 Long term (current) use of aspirin; Z87.440 Personal history of urinary (tract) infections; Z87.891 Personal history of nicotine dependence
CPT/HCPCS: 71046; 80053; 81003; 83735; 84484; 85025; 93005; 99281; 99285

== ENCOUNTER 2017-10-16 18:09 | Inpatient (IN) | payer OTHER ==
[~2017-10-16] VITALS: Ht 182.9 cm; Wt 122.0 kg
[2017-10-16 19:19] LABS: BASOPHIL (%) 0.4 % (0-1); EOSINOPHIL (%) 5.5 % (0-5); EOSINOPHIL COUNT 0.5 K/uL (0-0.3); HEMATOCRIT 40.4 % (38.0-50.0); HEMOGLOBIN 13.7 G/DL (12.5-16.6); IMMATURE GRANULOCYTE (%) 0.7 % (0.0-0.7); LYMPHOCYTE (%) 18.9 % (15-42); LYMPHOCYTE COUNT 1.7 K/uL (1.0-2.8); MCH 31.9 PG (29.0-34.0); MCHC 33.9 G/DL (30.0-36.0); MCV 94.2 FL (86-99); MONOCYTE (%) 11.8 % (3-12); MONOCYTE COUNT 1.1 K/uL (0-0.8); NEUTROPHIL (%) 62.7 % (45-76); NEUTROPHIL COUNT 5.6 K/uL (1.8-6.4); PLATELET COUNT 216 K/uL (156-360); RBC DIS.WIDTH-CV 13.5 % (11.8-14.6); RBC DIS.WIDTH-SD 46.3 % (39-53); RED BLOOD COUNT 4.29 M/uL (4.00-5.50); WHITE BLOOD COUNT 8.9 K/uL (4.1-10.2)
[2017-10-16 19:26] LABS: ALBUMIN 3.6 g/dL (3.2-4.8); CHLORIDE 103 mEq/L (99-109); POTASSIUM 4.3 mEq/L (3.7-5.4); SODIUM 138 mEq/L (136-147)
[2017-10-16 19:28] LABS: GLUCOSE 99 mg/dL (70-99)
[2017-10-16 19:29] LABS: TOTAL PROTEIN 6.4 g/dL (6.4-8.3)
[2017-10-16 19:32] LABS: ALKALINE PHOSPHATASE 71 IU/L (3-129); CREATININE 1.9 mg/dL (0.6-1.3); GFR ESTIMATE (CALCULATED) 36 mL/min/ (58.99-99999)
[2017-10-16 19:33] LABS: TOTAL BILIRUBIN 1.8 mg/dL (0.0-1.0); UREA NITROGEN (BUN) 22 mg/dL (9-23)
[2017-10-16 19:34] LABS: AST (GOT) 23 IU/L (2-34)
[2017-10-16 19:35] LABS: ALT (GPT) 13 IU/L (3-49)
[2017-10-16 19:36] LABS: LIPASE 29 U/L (1.0-51.0)
[2017-10-16 19:42] LABS: TROP-I INTERPRETATION NEGATIVE; TROPONIN-I 0.02 ng/mL (0.0-0.30)
[2017-10-16] MEDS ORDERED: ZESTRIL10 MG PO (22:10)
[2017-10-16] MEDS ORDERED: TYLENOL REGULA325 MG PO (22:24)
[2017-10-16 23:52] VITALS: BP 169/96
[2017-10-17 04:17] VITALS: BP 172/92
[2017-10-17 07:39] VITALS: BP 136/86
[2017-10-17 11:35] VITALS: BP 148/84
[2017-10-17 16:02] VITALS: BP 134/83
[2017-10-17 19:48] VITALS: BP 107/63
[2017-10-18 00:18] VITALS: BP 147/78
[2017-10-18 04:50] VITALS: BP 177/77
[2017-10-18 07:25] VITALS: BP 172/89
[2017-10-18 12:13] VITALS: BP 121/72
[2017-10-18 12:13] LABS: APPEARANCE SL.HAZY ((CLEAR)); BILIRUBIN NEGATIVE; BLOOD NEGATIVE; COLOR AMBER ((YELLOW)); GLUCOSE (STRIP) NEGATIVE; KETONES NEGATIVE; LEUKOCYTES TRACE; NITRITE NEGATIVE; PROTEIN (STRIP) NEGATIVE; SPECIFIC GRAVITY 1.023 (1.000-1.030)
[2017-10-18] MEDS ORDERED: DONEPEZIL HCL5 MG PO (12:18)
[2017-10-18 12:20] LABS: BACTERIA 1+ /HPF; EPITHELIAL CELLS 1+ /HPF; HYALINE CASTS 15-20 /LPF; MUCUS 2+ /LPF; RED BLOOD CELLS 0-5 /HPF (0-5); UCUL ADDED? NO; WHITE BLOOD CELLS 0-5 /HPF (0-5)
== END 2017-10-18 14:27 | disposition home health service (06) | DRG 948 ==
LOC: EME 18:09 → 4SOUTH 21:33 → EDOF 21:33 → ENRESERV 21:35 → 4SOUTH 23:32
PROVIDERS: Emergency Medicine; Nurse Practitioner Adult Health
DX: R41.0 Disorientation, unspecified (principal); F01.50 Vascular dementia, unspecified severity, without behavioral disturbance, psychotic disturbance, mood disturbance, and anxiety; I25.10 Atherosclerotic heart disease of native coronary artery without angina pectoris; I13.0 Hypertensive heart and chronic kidney disease with heart failure and stage 1 through stage 4 chronic kidney disease, or unspecified chronic kidney disease; G89.29 Other chronic pain; M54.9 Dorsalgia, unspecified; F32.9 Major depressive disorder, single episode, unspecified; Z91.048 Other nonmedicinal substance allergy status; F41.9 Anxiety disorder, unspecified; E78.5 Hyperlipidemia, unspecified; R29.6 Repeated falls; R44.0 Auditory hallucinations; R07.81 Pleurodynia; M54.5 Low back pain; R44.1 Visual hallucinations; R11.2 Nausea with vomiting, unspecified; R32 Unspecified urinary incontinence; H91.90 Unspecified hearing loss, unspecified ear; K21.9 Gastro-esophageal reflux disease without esophagitis; Z96.653 Presence of artificial knee joint, bilateral; N18.3 Chronic kidney disease, stage 3 (moderate); I49.3 Ventricular premature depolarization; M19.90 Unspecified osteoarthritis, unspecified site; R19.7 Diarrhea, unspecified; Z96.641 Presence of right artificial hip joint; I48.0 Paroxysmal atrial fibrillation; R91.1 Solitary pulmonary nodule; I50.9 Heart failure, unspecified; G47.33 Obstructive sleep apnea (adult) (pediatric); Z96.611 Presence of right artificial shoulder joint; E66.01 Morbid (severe) obesity due to excess calories; I73.9 Peripheral vascular disease, unspecified; Z88.1 Allergy status to other antibiotic agents; Z87.11 Personal history of peptic ulcer disease; Z87.891 Personal history of nicotine dependence; Z96.612 Presence of left artificial shoulder joint; Z79.899 Other long term (current) drug therapy; Z90.49 Acquired absence of other specified parts of digestive tract; Z91.09 Other allergy status, other than to drugs and biological substances; Z85.46 Personal history of malignant neoplasm of prostate; I25.2 Old myocardial infarction; Z68.36 Body mass index [BMI] 36.0-36.9, adult; Z79.82 Long term (current) use of aspirin; R53.1 Weakness
CPT/HCPCS: 70450; 71250; 74176; 80053; 81003; 83690; 84484; 85025; 87040; 87493; 93005; 94640; 94640 76; 99202; 99281; 99285; G0378; G8987 GO CJ; G8988 CI; J0360; J1644; J2405; J7040

== ENCOUNTER 2017-11-19 13:19 | Emergency (ER) | payer OTHER ==
[~2017-11-19] VITALS: Ht 185.4 cm; Wt 122.2 kg
[~2017-11-19 13:19] MED LIST changes: +DONEPEZIL HCL5 MG PO; +TYLENOL REGULA325 MG PO; +ZESTRIL10 MG PO
[2017-11-19 15:04] LABS: BASOPHIL (%) 0.6 % (0-1); BASOPHIL COUNT 0.1 K/uL (0-0.1); EOSINOPHIL (%) 6.2 % (0-5); EOSINOPHIL COUNT 0.5 K/uL (0-0.3); HEMATOCRIT 38.3 % (38.0-50.0); HEMOGLOBIN 12.9 G/DL (12.5-16.6); LYMPHOCYTE (%) 13.7 % (15-42); LYMPHOCYTE COUNT 1.1 K/uL (1.0-2.8); MCHC 33.7 G/DL (30.0-36.0); MONOCYTE (%) 11.2 % (3-12); MONOCYTE COUNT 0.9 K/uL (0-0.8); NEUTROPHIL (%) 66.3 % (45-76); NEUTROPHIL COUNT 5.5 K/uL (1.8-6.4); PLATELET COUNT 173 K/uL (156-360); RBC DIS.WIDTH-CV 13.7 % (11.8-14.6); RBC DIS.WIDTH-SD 47.7 % (39-53); RED BLOOD COUNT 4.03 M/uL (4.00-5.50); WHITE BLOOD COUNT 8.3 K/uL (4.1-10.2)
[2017-11-19 15:04] LABS: APPEARANCE SL.HAZY ((CLEAR)); BILIRUBIN NEGATIVE; BLOOD SMALL; COLOR YELLOW ((YELLOW)); GLUCOSE (STRIP) NEGATIVE; KETONES NEGATIVE; LEUKOCYTES NEGATIVE; NITRITE NEGATIVE; PROTEIN (STRIP) NEGATIVE; SPECIFIC GRAVITY 1.024 (1.000-1.030)
[2017-11-19 15:17] LABS: ALBUMIN 2.9 g/dL (3.2-4.8)
[2017-11-19 15:18] LABS: CHLORIDE 110 mEq/L (99-109); SODIUM 141 mEq/L (136-147)
[2017-11-19 15:20] LABS: GLUCOSE 101 mg/dL (70-99); TOTAL PROTEIN 5.4 g/dL (6.4-8.3)
[2017-11-19 15:22] LABS: TOTAL BILIRUBIN 0.7 mg/dL (0.0-1.0)
[2017-11-19 15:23] LABS: ALKALINE PHOSPHATASE 62 IU/L (3-129)
[2017-11-19 15:24] LABS: CREATININE 1.8 mg/dL (0.6-1.3); GFR ESTIMATE (CALCULATED) 38 mL/min/ (58.99-99999)
[2017-11-19 15:25] LABS: AST (GOT) 19 IU/L (2-34); UREA NITROGEN (BUN) 25 mg/dL (9-23)
[2017-11-19 15:26] LABS: ALT (GPT) 12 IU/L (3-49)
[2017-11-19 15:28] LABS: TROP-I INTERPRETATION NEGATIVE; TROPONIN-I < 0.01 ng/mL (0.0-0.30)
[2017-11-19 15:29] LABS: BACTERIA RARE /HPF; EPITHELIAL CELLS RARE /HPF; HYALINE CASTS 0-5 /LPF; MUCUS TRACE /LPF; RED BLOOD CELLS 0-5 /HPF (0-5); UCUL ADDED? YES
[2017-11-19 17:24] VITALS: BP 159/99
== END 2017-11-19 17:36 | disposition home or self-care (01) ==
LOC: EME 13:19
PROVIDERS: Emergency Medicine
DX: R53.1 Weakness (principal); K52.9 Noninfective gastroenteritis and colitis, unspecified; J43.9 Emphysema, unspecified; I10 Essential (primary) hypertension; E78.5 Hyperlipidemia, unspecified; F32.9 Major depressive disorder, single episode, unspecified; I25.2 Old myocardial infarction; K21.9 Gastro-esophageal reflux disease without esophagitis; J45.909 Unspecified asthma, uncomplicated; F41.9 Anxiety disorder, unspecified; Z87.440 Personal history of urinary (tract) infections; Z96.653 Presence of artificial knee joint, bilateral; Z96.641 Presence of right artificial hip joint; Z96.611 Presence of right artificial shoulder joint; Z79.82 Long term (current) use of aspirin; Z88.0 Allergy status to penicillin; Z87.891 Personal history of nicotine dependence
CPT/HCPCS: 71045; 80053; 81003; 83605; 84484; 85025; 87040; 87077; 87086 GA; 87186; 93005; 99281; 99285; J7040